=== PATIENT | female | born 1970 | race Caucasian/White ===

== ENCOUNTER 2017-02-05 00:06 | Emergency (ER) | payer OTHER ==
[2017-02-05 00:23] VITALS: BP 148/91
--- NOTE | 2017-02-05 01:33 | EDM.PDOC ---
ED HPI GENERAL MEDICAL PROBLEM - General Chief Complaint: Eye Problems Stated Complaint: SOMETHING IN LEFT EYE Time Seen by Provider: 02/05/17 00:33 Source of Information: Reports: Patient History Limitations: Reports: No Limitations - History of Present Illness INITIAL COMMENTS - FREE TEXT/NARRATIVE: This is a 46-year-old female. Yesterday she noticed some irritation of her left eye. He has continued to bother her and she comes to the ER this evening because she thinks there might be something in her eye. She doesn't recall anything getting in her eye just discharged irritation her and it has gotten worse and worse. She denies any significant change in vision. She denies any other acute symptoms. Left Eye Pain Score (Numeric/FACES): 7 - Related Data Allergies Allergy/AdvReac Type Severity Reaction Status Date / Time No Known Allergies Allergy Verified 02/05/17 00:23 Past Medical History HEENT History: Reports: Other (See Below) Other HEENT History: wear glasses [employer] History: Reports: Endometrial Ablation Musculoskeletal History: Reports: Back Pain, Chronic Psychiatric History: Reports: Anxiety Endocrine/Metabolic History: Reports: Other (See Below) Other Endocrine/Metabolic History: prediabetic Social & Family History - Tobacco Use Smoking Status *Q: Never Smoker - Caffeine Use Caffeine Use: Reports: None - Recreational Drug Use Recreational Drug Use: No ED ROS GENERAL - Review of Systems Review Of Systems: See Below Constitutional: Denies: Fever, Chills HEENT: Reports: Other (As per history of present illness) Respiratory: Reports: No Symptoms Cardiovascular: Reports: No Symptoms Endocrine: Reports: No Symptoms GI/Abdominal: Reports: No Symptoms : Reports: No Symptoms Musculoskeletal: Reports: No Symptoms Skin: Reports: No Symptoms Neurological: Reports: No Symptoms Psychiatric: Reports: No Symptoms Hematologic/Lymphatic: Reports: No Symptoms ED EXAM GENERAL W FULL EYE - Physical Exam Exam: See Below Exam Limited By: No Limitations General Appearance: Alert, WD/WN, No Apparent Distress Eye Exam: Bilateral Eye: Normal Inspection (The left eye has some mild erythema noted and inflammation of the conjunctiva, there is no obvious warm body seen on the cornea with ophthalmology scope exam, I everted the upper and lower lids and no FB noted, Fluoresceine stain shows upper globe abrasion but no corneal abrasion noted. The upper lid is very irritated on the medial side.) Extraocular Movements: Bilateral: Intact Pupils: Normal Accommodation Pupillary Size: Bilateral: 4 mm Pupillary Reaction: Bilateral: Brisk Anterior Chamber: Bilateral: Normal Appearance Ears: Normal External Exam Nose: Normal Inspection Throat/Mouth: Normal Inspection, Normal Lips, Normal Voice Head: Normocephalic Neck: Supple Respiratory/Chest: No Respiratory Distress Back Exam: Full Range of Motion Extremities: Normal Inspection, Normal Range of Motion Neurological: Alert, Oriented Psychiatric: Normal Affect, Normal Mood Skin Exam: Warm, Dry Course - Vital Signs Last Recorded V/S: Last Vital Signs Temp 97.2 F 02/05/17 00:17 Pulse 90 02/05/17 00:17 Resp 18 02/05/17 00:17 BP 148/91 H 02/05/17 00:17 Pulse Ox 95 02/05/17 00:17 Departure - Departure Time of Disposition: 01:34 Disposition: Home, Self-Care 01 Condition: good Clinical Impression: Inflammation of conjunctiva Qualifiers: Conjunctivitis type: acute Acute conjunctivitis type: unspecified Laterality: left Qualified Code(s): H10.32 - Unspecified acute conjunctivitis, left eye - Discharge Information Forms: ED Department Discharge Additional Instructions: Wear the eye patch for the next 12 hours, once you take it off do not rub your left eye but use the artificial tears as needed for the irritation or scratchiness, if you notice that the eye continues to be red or there is obvious yellow drainage on the eyelashes followup with your family doctor for recheck, return to the ER as needed
[2017-02-05] MEDS ORDERED: Erythromycin Base 0.5% Ophth Oint 1 GM Tube EYELF ONE (01:37)
== END 2017-02-05 02:12 | disposition home or self-care (01) ==
LOC: JD.ED 00:06
DX: H10.32 Unspecified acute conjunctivitis, left eye (principal)
CPT/HCPCS: 99283; A9270; 99282